=== PATIENT | male | born 1950 | race American Indian/Alaskan Native ===

== ENCOUNTER → 2017-08-18 | Outpatient (REF) | payer MEDICARE | LOC: M SMT 12:49 | PROVIDERS: ATTEND Nurse Practitioner Women's Health | DX: R97.20 Elevated prostate specific antigen [PSA] (principal); B20 Human immunodeficiency virus [HIV] disease; E11.9 Type 2 diabetes mellitus without complications; Q61.00 Congenital renal cyst, unspecified; N40.1 Benign prostatic hyperplasia with lower urinary tract symptoms | CPT/HCPCS: 81001; 87086; G0463 ==

== ENCOUNTER → 2017-10-01 | Outpatient (CLI) | payer MEDICARE ==
--- NOTE | 2017-10-01 15:08 | REP ---
TRANSRECTAL ULTRASOUND PROSTATE WITH ULTRASOUND GUIDANCE FOR PROSTATE BIOPSY: Real-time sonographic evaluation of prostate performed utilizing transrectal probe. Size of the gland is 4.0 x 3.1 x 4.2 cm for a total volume of 27.1 mL. Nodular area on the left measures 7 x 4 mm. Scattered calcifications are seen in the prostate. Seminal vesicles appear symmetrical. Ultrasound guidance was provide for Dr. Dempsey who performed ultrasound-guided biopsy of the prostate. Signed by Dewey Norton MD 10/01/2017 03:50 P
== END ==
LOC: M SMT PRO 10:20
PROVIDERS: ATTEND Urology
DX: C61 Malignant neoplasm of prostate (principal)
CPT/HCPCS: 55700; 76872; 76942; G0416

== ENCOUNTER → 2017-10-11 | Outpatient (CLI) | payer MEDICARE ==
--- NOTE | 2017-10-11 14:29 | REP ---
Clinical: Prostate cancer . Comparison: None . Technique: PA and lateral. Findings: The mediastinum and cardiac silhouette are normal. The lung shetty are clear and without acute consolidation, effusion, or pneumothorax. The skeletal structures are intact and normal. Impression: 1. No acute cardiopulmonary process. Signed by Hermilo Lundberg MD 10/11/2017 02:20 P
[2017-10-11 19:20] LABS: CALCIUM LEVEL 9.2 MG/DL (8.8-10.2); CREATININE FOR GFR 1.28 MG/DL (0.70-1.30); POTASSIUM SERUM 4.5 MEQ/L (3.5-5.1)
== END ==
LOC: M SMT 13:55
PROVIDERS: ATTEND Nurse Practitioner Women's Health
DX: C61 Malignant neoplasm of prostate (principal)
CPT/HCPCS: 36415; 71020; 80048; G0463

== ENCOUNTER → 2017-11-18 | Outpatient (CLI) | payer MEDICARE ==
[~2017-11-18] MED LIST: ISOVUE-370 76% 100ML VIAL (Q9967) As Ordered
== END ==
LOC: M RAD 09:18
DX: C61 Malignant neoplasm of prostate (principal); N28.1 Cyst of kidney, acquired
CPT/HCPCS: Q9967

== ENCOUNTER → 2018-01-07 | Outpatient (CLI) | payer MEDICARE | LOC: M SMT PRO 09:52 | DX: C61 Malignant neoplasm of prostate (principal) | CPT/HCPCS: 55876 ==